=== PATIENT | female | born 1950 | race Caucasian/White ===

== ENCOUNTER 2022-04-29 20:39 | Inpatient (IN) | payer MEDICARE, BC ==
[~2022-04-29] VITALS: Ht 162.6 cm; Wt 75.7 kg
[2022-04-29 23:15] VITALS: BP 125/63
[2022-04-29 23:30] VITALS: BP 140/63
[2022-04-29 23:45] VITALS: BP 135/65
[2022-04-30] VITALS (59 sets, daily range): BP systolic 80–140; BP diastolic 48–81
[2022-04-30] MEDS ORDERED: NOREPINEPHRINE 4MG IN D5 250ML 4 MG in IV 1 EA IV SCH ×2
[2022-04-30] MEDS ORDERED: DEXTROSE 50% 50ML SYRINGE IV PRN (01:10)
[2022-04-30] MEDS ORDERED: GLUCOSE 4GM CHEW TABLET PO PRN (01:10)
[2022-04-30] MEDS ORDERED: GLUCAGON INJ 1MG VIAL SC PRN (01:10)
[2022-04-30 02:05] LABS: HEMATOCRIT 28.7 % (36.0-47.0); HEMOGLOBIN 9.1 g/dl (12.0-15.5); MEAN CORPUSCULAR HEMOGLOBIN 26.3 pg (27.0-33.0); MEAN CORPUSCULAR HGB CONC 31.7 g/dl (32.0-36.5); MEAN CORPUSCULAR VOLUME 82.9 fl (80.0-96.0); PLATELET COUNT, AUTOMATED 429 10^3/uL (150-450); RED BLOOD COUNT 3.46 10^6/uL (4.00-5.40); WHITE BLOOD COUNT 29.5 10^3/uL (4.0-10.0)
[2022-04-30] MEDS ORDERED: AMLO1TAB24 PO (02:06)
[2022-04-30] MEDS ORDERED: GLIM2TAB29 PO (02:06)
[2022-04-30] MEDS ORDERED: TRAD5TAB PO (02:06)
[2022-04-30] MEDS ORDERED: MEDR10TA9 PO (02:06)
[2022-04-30] MEDS ORDERED: DOXY100T PO (02:06)
[2022-04-30] MEDS: NS 1,000 ML IV SCH ×3 (02:06→22:21)
[2022-04-30] MEDS ORDERED: RAMI1CAP26 PO (02:10)
[2022-04-30] MEDS ORDERED: VITA500030 PO (02:10)
[2022-04-30] MEDS ORDERED: SIMV20TA22 PO (02:10)
[2022-04-30] MEDS ORDERED: METF-838 PO (02:10)
[2022-04-30] MEDS ORDERED: THERTAB52 PO (02:10)
[2022-04-30] MEDS ORDERED: GNP1000C11 PO (02:10)
[2022-04-30] MEDS ORDERED: ASPI81TA26 PO (02:10)
[2022-04-30] MEDS ORDERED: CALCCAP4 PO (02:10)
[2022-04-30] MEDS ORDERED: HOME MED LIST COMPLETE! XX SCH (02:15)
[2022-04-30 02:51] LABS: ALBUMIN 2.1 G/DL (3.2-5.2); ALKALINE PHOSPHATASE 101 U/L (46-116); ALT/SGPT 11 U/L (7.0-40); AST/SGOT 12 U/L (<34); BILIRUBIN,TOTAL < 0.2 MG/DL (0.3-1.2); BLOOD UREA NITROGEN 38 MG/DL (9-23); CARBON DIOXIDE LEVEL 18 MMOL/L (20-31); CHLORIDE LEVEL 103 MMOL/L (98-107); CREATININE FOR GFR 1.24 MG/DL (0.55-1.30); GLOMERULAR FILTRATION RATE 45.3 (>39); GLUCOSE, FASTING 159 MG/DL (74-106); MAGNESIUM LEVEL 1.6 MG/DL (1.8-2.4); PHOSPHORUS LEVEL 3.7 MG/DL (2.4-5.1); POTASSIUM SERUM 3.9 MMOL/L (3.5-5.1); SODIUM LEVEL 131 MMOL/L (136-145)
[2022-04-30 02:56] LABS: TOTAL PROTEIN 5.1 G/DL (5.7-8.2)
[2022-04-30 02:59] LABS: ANISOCYTOSIS 1+; HYPOCHROMASIA 1+; LYMPHOCYTES 9 % (16-44); METAMYELOCYTES 1 % (0-0); MONOCYTES 3 % (0-5); MYELOCYTES 1 % (0-0); NEUTROPHILS 78 % (28-66); PLATELET ESTIMATE NORMAL (NORMAL); PROMYELOCYTES 1 % (0-0)
[2022-04-30 03:00] LABS: BURR CELLS 2+
[2022-04-30] MEDS ORDERED: MAG SULF 1GM/100ML (MAG RUN) 1 GM in IV 1 EA IV ONE (03:25)
[2022-04-30] MEDS ORDERED: metroNIDAZOLE (FLAGYL) 500MG TABLET PO SCH (06:00)
[2022-04-30] MEDS ORDERED: VANCOMYCIN ORAL SOL 250MG/5ML ORAL SYRINGE PO SCH (06:00)
[2022-04-30] MEDS: INSULIN LISPRO (NovoLOG) PER UNIT SC SCH ×4 (07:30→20:14)
[2022-04-30] MEDS: ASPIRIN 81MG ENTERIC TABLET PO SCH (08:28)
[2022-04-30 08:54] LABS: CLOSTRIDIUM DIFFICILE PCR NEGATIVE (NEGATIVE)
[2022-04-30] MEDS ORDERED: LR 1,000 ML IV ONE (09:00)
[2022-04-30] MEDS: PIPERACILLIN/TAZOBACTAM SOD 4.5 GM in D5W MINI-BAG PLUS 50 ML IV SCH ×2 (11:07→17:39)
[2022-04-30] MEDS: medroxyPROGESTERone 5MG TABLET PO SCH (11:07)
[2022-04-30] MEDS: SIMVASTATIN 20 MG TAB PO SCH (20:13)
[2022-05-01] VITALS (11 sets, daily range): BP systolic 73–150; BP diastolic 40–70
[2022-05-01] MEDS: PIPERACILLIN/TAZOBACTAM SOD 4.5 GM in D5W MINI-BAG PLUS 50 ML IV SCH ×4 (00:03→17:14)
[2022-05-01] MEDS ORDERED: SODIUM CHLORIDE 0.9% INJ 10 ML SYR IV PRN (02:35)
[2022-05-01 05:19] LABS: HEMATOCRIT 28.7 % (36.0-47.0); HEMOGLOBIN 9.1 g/dl (12.0-15.5); MEAN CORPUSCULAR HEMOGLOBIN 26.5 pg (27.0-33.0); MEAN CORPUSCULAR HGB CONC 31.7 g/dl (32.0-36.5); MEAN CORPUSCULAR VOLUME 83.7 fl (80.0-96.0); PLATELET COUNT, AUTOMATED 445 10^3/uL (150-450); RED BLOOD COUNT 3.43 10^6/uL (4.00-5.40); WHITE BLOOD COUNT 20.2 10^3/uL (4.0-10.0)
[2022-05-01 05:37] LABS: ANISOCYTOSIS 1+; ATYPICAL LYMPH 5 % (0-5); LYMPHOCYTES 15 % (16-44); MONOCYTES 6 % (0-5); NEUTROPHILS 72 % (28-66); PLATELET ESTIMATE INCREASED (NORMAL); POIKILOCYTOSIS 1+; POLYCHROMASIA 1+
[2022-05-01 05:38] LABS: SCHISTOCYTES 1+
[2022-05-01 05:51] LABS: ALBUMIN 2.2 G/DL (3.2-5.2); ALKALINE PHOSPHATASE 86 U/L (46-116); ALT/SGPT 11 U/L (7.0-40); AST/SGOT 10 U/L (<34); BILIRUBIN,TOTAL 0.2 MG/DL (0.3-1.2); BLOOD UREA NITROGEN 12 MG/DL (9-23); CARBON DIOXIDE LEVEL 22 MMOL/L (20-31); CHLORIDE LEVEL 108 MMOL/L (98-107); CREATININE FOR GFR 0.56 MG/DL (0.55-1.30); GLOMERULAR FILTRATION RATE > 60.0 (>39); GLUCOSE, FASTING 97 MG/DL (74-106); MAGNESIUM LEVEL 1.6 MG/DL (1.8-2.4); POTASSIUM SERUM 3.3 MMOL/L (3.5-5.1); SODIUM LEVEL 139 MMOL/L (136-145); TOTAL PROTEIN 5.3 G/DL (5.7-8.2)
[2022-05-01] MEDS: INSULIN LISPRO (NovoLOG) PER UNIT SC SCH ×4 (07:30→20:57)
[2022-05-01] MEDS: ASPIRIN 81MG ENTERIC TABLET PO SCH (07:56)
[2022-05-01] MEDS ORDERED: MAG SULF 1GM/100ML (MAG RUN) 1 GM in IV 1 EA IV ONE (08:00)
[2022-05-01] MEDS ORDERED: POTASSIUM CHLORIDE 10MEQ SR TABLET PO ONE (09:00)
[2022-05-01] MEDS ORDERED: NEOSPORIN OINT 0.9 GM PKT TOP ONE (09:30)
[2022-05-01] MEDS: medroxyPROGESTERone 5MG TABLET PO SCH (12:43)
[2022-05-01] MEDS: LACTOBACILLUS ACIDOPHILUS CAP (BACID) PO SCH ×3 (12:43→21:00)
[2022-05-01] MEDS: NS 1,000 ML IV SCH (12:44)
[2022-05-01] MEDS: SIMVASTATIN 20 MG TAB PO SCH (21:00)
[2022-05-02] MEDS: NS 1,000 ML IV SCH
[2022-05-02] MEDS: PIPERACILLIN/TAZOBACTAM SOD 4.5 GM in D5W MINI-BAG PLUS 50 ML IV SCH ×4 (00:15→17:39)
[2022-05-02 04:33] VITALS: BP 150/71
[2022-05-02 04:52] LABS: HEMATOCRIT 30.3 % (36.0-47.0); HEMOGLOBIN 9.4 g/dl (12.0-15.5); MEAN CORPUSCULAR VOLUME 83.7 fl (80.0-96.0); PLATELET COUNT, AUTOMATED 452 10^3/uL (150-450); RED BLOOD COUNT 3.62 10^6/uL (4.00-5.40); WHITE BLOOD COUNT 17.7 10^3/uL (4.0-10.0)
[2022-05-02 05:14] LABS: BLOOD UREA NITROGEN 6 MG/DL (9-23); CALCIUM LEVEL 7.6 MG/DL (8.3-10.6); CARBON DIOXIDE LEVEL 24 MMOL/L (20-31); CHLORIDE LEVEL 110 MMOL/L (98-107); CREATININE FOR GFR 0.47 MG/DL (0.55-1.30); GLOMERULAR FILTRATION RATE > 60.0 (>39); GLUCOSE, FASTING 116 MG/DL (74-106); SODIUM LEVEL 140 MMOL/L (136-145)
[2022-05-02 05:21] LABS: ATYPICAL LYMPH 5 % (0-5); LYMPHOCYTES 19 % (16-44); MONOCYTES 8 % (0-5); NEUTROPHILS 63 % (28-66); OVALOCYTES 1+; PLATELET ESTIMATE INCREASED (NORMAL)
[2022-05-02 05:22] LABS: ANISOCYTOSIS 1+; TARGET CELLS 1+
[2022-05-02 08:00] VITALS: BP 158/75
[2022-05-02] MEDS: INSULIN LISPRO (NovoLOG) PER UNIT SC SCH ×4 (08:33→21:00)
[2022-05-02] MEDS: LACTOBACILLUS ACIDOPHILUS CAP (BACID) PO SCH ×4 (08:33→21:30)
[2022-05-02] MEDS: ASPIRIN 81MG ENTERIC TABLET PO SCH (08:33)
[2022-05-02] MEDS: medroxyPROGESTERone 5MG TABLET PO SCH (12:09)
[2022-05-02 14:00] VITALS: BP 144/75
[2022-05-02 16:00] VITALS: BP 140/71
[2022-05-02 21:29] VITALS: BP 144/73
[2022-05-02] MEDS: SIMVASTATIN 20 MG TAB PO SCH (21:30)
[2022-05-03] MEDS: PIPERACILLIN/TAZOBACTAM SOD 4.5 GM in D5W MINI-BAG PLUS 50 ML IV SCH ×4 (00:45→18:19)
[2022-05-03 05:22] VITALS: BP 143/88
[2022-05-03 06:59] LABS: HEMATOCRIT 31.3 % (36.0-47.0); HEMOGLOBIN 9.6 g/dl (12.0-15.5); MEAN CORPUSCULAR HEMOGLOBIN 25.4 pg (27.0-33.0); MEAN CORPUSCULAR HGB CONC 30.7 g/dl (32.0-36.5); MEAN CORPUSCULAR VOLUME 82.8 fl (80.0-96.0); PLATELET COUNT, AUTOMATED 452 10^3/uL (150-450); RED BLOOD COUNT 3.78 10^6/uL (4.00-5.40); WHITE BLOOD COUNT 15.3 10^3/uL (4.0-10.0)
[2022-05-03 07:20] LABS: ATYPICAL LYMPH 10 % (0-5); BASOPHILS 1 % (0-1); EOSINOPHILS 4 % (0-3); LYMPHOCYTES 18 % (16-44); MONOCYTES 12 % (0-5); MYELOCYTES 2 % (0-0); NEUTROPHILS 53 % (28-66); PLATELET ESTIMATE NORMAL (NORMAL)
[2022-05-03 07:21] LABS: ANISOCYTOSIS 1+; POIKILOCYTOSIS 1+; POLYCHROMASIA 1+
[2022-05-03 07:28] LABS: BLOOD UREA NITROGEN 11 MG/DL (9-23); CALCIUM LEVEL 8.1 MG/DL (8.3-10.6); CARBON DIOXIDE LEVEL 25 MMOL/L (20-31); CHLORIDE LEVEL 108 MMOL/L (98-107); GLOMERULAR FILTRATION RATE > 60.0 (>39); GLUCOSE, FASTING 135 MG/DL (74-106); POTASSIUM SERUM 3.8 MMOL/L (3.5-5.1); SODIUM LEVEL 139 MMOL/L (136-145)
[2022-05-03] MEDS: LACTOBACILLUS ACIDOPHILUS CAP (BACID) PO SCH ×4 (08:24→21:15)
[2022-05-03] MEDS: ASPIRIN 81MG ENTERIC TABLET PO SCH (08:24)
[2022-05-03] MEDS: INSULIN LISPRO (NovoLOG) PER UNIT SC SCH ×4 (08:25→21:00)
[2022-05-03 10:25] LABS: MAGNESIUM LEVEL 1.2 MG/DL (1.8-2.4)
[2022-05-03 10:40] LABS: ERYTHROCYTE SEDIMENTATION RATE 63 mm/hr (0-30)
[2022-05-03] MEDS: medroxyPROGESTERone 5MG TABLET PO SCH (12:17)
[2022-05-03 17:14] VITALS: BP 135/74
[2022-05-03 20:00] VITALS: BP 132/57
[2022-05-03] MEDS: SIMVASTATIN 20 MG TAB PO SCH (21:15)
[2022-05-04] MEDS: PIPERACILLIN/TAZOBACTAM SOD 4.5 GM in D5W MINI-BAG PLUS 50 ML IV SCH ×3 (01:20→12:14)
[2022-05-04 06:00] VITALS: BP 120/60
[2022-05-04 06:52] LABS: HEMATOCRIT 30.7 % (36.0-47.0); HEMOGLOBIN 9.7 g/dl (12.0-15.5); MEAN CORPUSCULAR HEMOGLOBIN 26.8 pg (27.0-33.0); MEAN CORPUSCULAR HGB CONC 31.6 g/dl (32.0-36.5); MEAN CORPUSCULAR VOLUME 84.8 fl (80.0-96.0); PLATELET COUNT, AUTOMATED 482 10^3/uL (150-450); RED BLOOD COUNT 3.62 10^6/uL (4.00-5.40); WHITE BLOOD COUNT 17.5 10^3/uL (4.0-10.0)
[2022-05-04 07:18] LABS: BLOOD UREA NITROGEN 14 MG/DL (9-23); CALCIUM LEVEL 8.5 MG/DL (8.3-10.6); CARBON DIOXIDE LEVEL 24 MMOL/L (20-31); CHLORIDE LEVEL 106 MMOL/L (98-107); CREATININE FOR GFR 0.38 MG/DL (0.55-1.30); GLOMERULAR FILTRATION RATE > 60.0 (>39); GLUCOSE, FASTING 149 MG/DL (74-106); POTASSIUM SERUM 3.7 MMOL/L (3.5-5.1); SODIUM LEVEL 138 MMOL/L (136-145)
[2022-05-04 07:47] LABS: MAGNESIUM LEVEL 1.3 MG/DL (1.8-2.4)
[2022-05-04] MEDS: LACTOBACILLUS ACIDOPHILUS CAP (BACID) PO SCH ×4 (08:02→21:13)
[2022-05-04] MEDS: ASPIRIN 81MG ENTERIC TABLET PO SCH (08:02)
[2022-05-04] MEDS: INSULIN LISPRO (NovoLOG) PER UNIT SC SCH ×4 (08:02→21:00)
[2022-05-04 08:35] LABS: ATYPICAL LYMPH 7 % (0-5); EOSINOPHILS 1 % (0-3); LYMPHOCYTES 22 % (16-44); METAMYELOCYTES 4 % (0-0); MONOCYTES 9 % (0-5); MYELOCYTES 2 % (0-0); NEUTROPHILS 53 % (28-66); NUCLEATED RED BLOOD CELL 1 % (0-0)
[2022-05-04 08:36] LABS: ANISOCYTOSIS 1+; HYPOCHROMASIA 1+
[2022-05-04 08:37] LABS: PLATELET ESTIMATE INCREASED (NORMAL); POIKILOCYTOSIS 1+
[2022-05-04] MEDS: MAG SULF 1GM/100ML (MAG RUN) 1 GM in IV 1 EA IV SCH ×2 (10:31→12:14)
[2022-05-04] MEDS: medroxyPROGESTERone 5MG TABLET PO SCH (12:15)
[2022-05-04] MEDS ORDERED: AMOX875T2 PO (12:23)
[2022-05-04] MEDS ORDERED: RISATAB3 PO (12:24)
[2022-05-04 14:00] VITALS: BP 117/60
[2022-05-04 20:26] VITALS: BP 122/57
[2022-05-04] MEDS: AUGMENTIN 875 MG TAB PO SCH (21:12)
[2022-05-04] MEDS: SIMVASTATIN 20 MG TAB PO SCH (21:13)
[2022-05-04] MEDS: NYSTATIN 100,000 UNITS/GM TOPICAL PWD 15GM TOP SCH (21:16)
[2022-05-05 06:50] VITALS: BP 136/74
[2022-05-05] MEDS: LACTOBACILLUS ACIDOPHILUS CAP (BACID) PO SCH ×4 (08:36→20:54)
[2022-05-05] MEDS: INSULIN LISPRO (NovoLOG) PER UNIT SC SCH ×4 (08:36→20:55)
[2022-05-05] MEDS: ASPIRIN 81MG ENTERIC TABLET PO SCH (08:36)
[2022-05-05] MEDS: AUGMENTIN 875 MG TAB PO SCH ×2 (08:36→20:54)
[2022-05-05] MEDS: NYSTATIN 100,000 UNITS/GM TOPICAL PWD 15GM TOP SCH ×2 (08:37→20:57)
[2022-05-05] MEDS: medroxyPROGESTERone 5MG TABLET PO SCH (13:32)
[2022-05-05 14:00] VITALS: BP 130/56
[2022-05-05] MEDS: SIMVASTATIN 20 MG TAB PO SCH (20:55)
[2022-05-05 21:09] VITALS: BP 154/72
[2022-05-06 05:25] VITALS: BP 133/64
[2022-05-06] MEDS: AUGMENTIN 875 MG TAB PO SCH (07:51)
[2022-05-06] MEDS: ASPIRIN 81MG ENTERIC TABLET PO SCH (07:51)
[2022-05-06] MEDS: LACTOBACILLUS ACIDOPHILUS CAP (BACID) PO SCH ×2 (07:51→12:52)
[2022-05-06] MEDS: INSULIN LISPRO (NovoLOG) PER UNIT SC SCH ×2 (07:53→12:53)
[2022-05-06] MEDS: NYSTATIN 100,000 UNITS/GM TOPICAL PWD 15GM TOP SCH (07:54)
[2022-05-06] MEDS: medroxyPROGESTERone 5MG TABLET PO SCH (12:51)
== END 2022-05-06 13:15 | disposition home health service (06) | DRG 871 ==
LOC: M ICU 23:10 → M MS5PR 05-02 18:15
PROVIDERS: ADMIT Internal Medicine; ATTEND Internal Medicine
DX: A41.89 Other specified sepsis (principal); R65.21 Severe sepsis with septic shock; L89.154 Pressure ulcer of sacral region, stage 4; A04.72 Enterocolitis due to Clostridium difficile, not specified as recurrent; G82.20 Paraplegia, unspecified; T81.31XA Disruption of external operation (surgical) wound, not elsewhere classified, initial encounter; N17.9 Acute kidney failure, unspecified; N39.0 Urinary tract infection, site not specified; M86.9 Osteomyelitis, unspecified; E83.42 Hypomagnesemia; E11.622 Type 2 diabetes mellitus with other skin ulcer; E87.6 Hypokalemia; I10 Essential (primary) hypertension; Z79.52 Long term (current) use of systemic steroids; Z79.82 Long term (current) use of aspirin; Z79.84 Long term (current) use of oral hypoglycemic drugs; Z79.899 Other long term (current) drug therapy

== ENCOUNTER → 2022-07-25 | Outpatient (CLI) | payer MEDICARE, BC ==
[~2022-07-25] MED LIST: AMLO1TAB24 PO; AMOX875T2 PO; ASPI81TA26 PO; CALCCAP4 PO; DOXY100T PO; GLIM2TAB29 PO; GNP1000C11 PO; MEDR10TA9 PO; METF-838 PO; RAMI1CAP26 PO; RISATAB3 PO; SIMV20TA22 PO; THERTAB52 PO; TRAD5TAB PO; VITA500030 PO
[2022-07-25 14:15] LABS: HEMOGLOBIN 8.1 g/dl (12.0-15.5); MEAN CORPUSCULAR HEMOGLOBIN 23.1 pg (27.0-33.0); MEAN CORPUSCULAR VOLUME 76.9 fl (80.0-96.0); PLATELET COUNT, AUTOMATED 884 10^3/uL (150-450); RED BLOOD COUNT 3.51 10^6/uL (4.00-5.40); WHITE BLOOD COUNT 13.1 10^3/uL (4.0-10.0)
[2022-07-25 14:34] LABS: ALKALINE PHOSPHATASE 92 U/L (46-116); ALT/SGPT 12 U/L (7.0-40); AST/SGOT 11 U/L (<34); BILIRUBIN,TOTAL 0.2 MG/DL (0.3-1.2); BLOOD UREA NITROGEN 8 MG/DL (9-23); CALCIUM LEVEL 8.9 MG/DL (8.3-10.6); CARBON DIOXIDE LEVEL 26 MMOL/L (20-31); CHLORIDE LEVEL 102 MMOL/L (98-107); CREATININE FOR GFR 0.44 MG/DL (0.55-1.30); GLOMERULAR FILTRATION RATE > 60.0 (>39); GLUCOSE, FASTING 81 MG/DL (74-106); POTASSIUM SERUM 5.2 MMOL/L (3.5-5.1); SODIUM LEVEL 135 MMOL/L (136-145); TOTAL PROTEIN 6.8 G/DL (5.7-8.2)
[2022-07-25 15:16] LABS: BASOPHILS 1 % (0-1); EOSINOPHILS 1 % (0-3); LYMPHOCYTES 45 % (16-44); NEUTROPHILS 53 % (28-66)
[2022-07-25 15:17] LABS: PLATELET ESTIMATE INCREASED (NORMAL)
[2022-07-25 15:18] LABS: HYPOCHROMASIA 2+
[2022-07-25 15:22] LABS: POIKILOCYTOSIS 1+
[2022-07-25 15:24] LABS: SCHISTOCYTES 1+
[2022-07-25 19:49] LABS: ERYTHROCYTE SEDIMENTATION RATE 123 mm/hr (0-30)
== END ==
LOC: M PLALAB 11:16
PROVIDERS: ATTEND Internal Medicine Infectious Disease
DX: M86.68 Other chronic osteomyelitis, other site (principal); Z20.822 Contact with and (suspected) exposure to COVID-19

== ENCOUNTER 2022-09-07 16:13 | Outpatient (CLI) | payer MEDICARE, BC ==
[~2022-09-07] VITALS: Ht 160 cm; Wt 77.3 kg
[~2022-09-07 16:13] MED LIST changes: +CURRENT HEIGHT AND WEIGHT NEEDED ON PATIENT XX SCH
[2022-09-07] MEDS ORDERED: BEZLOTOXUMAB 750 MG in NS 100 ML IV ONE ×2 (16:30→17:00)
[2022-09-07 16:35] VITALS: BP 133/69; O2SAT 98
[2022-09-07] MEDS ORDERED: SODIUM CHLORIDE 0.9% INJ 10 ML SYR IV PRN (17:05)
[2022-09-07] MEDS ORDERED: SODIUM CHLORIDE 0.9% INJ 10 ML SYR IV SCH (18:00)
[2022-09-07 18:03] VITALS: BP 138/65; O2SAT 99
== END 2022-09-07 18:00 ==
LOC: M INFU 16:13
PROVIDERS: ATTEND Internal Medicine Infectious Disease
DX: A04.71 Enterocolitis due to Clostridium difficile, recurrent (principal)
CPT/HCPCS: 96365; J0565

== ENCOUNTER 2023-01-03 16:35 | Outpatient (CLI) | payer MEDICARE, BC ==
[~2023-01-03] VITALS: Ht 160 cm; Wt 78.0 kg
[~2023-01-03 16:35] MED LIST changes: -CURRENT HEIGHT AND WEIGHT NEEDED ON PATIENT XX SCH
[2023-01-03 17:00] VITALS: BP 131/82; O2SAT 96
[2023-01-03] MEDS ORDERED: FECAL MICROBIOTA, LIVE-JSLM 150ML BAG (REBYOTA) RC ONE (17:00)
== END 2023-01-03 17:20 ==
LOC: M INFU 16:35
PROVIDERS: ATTEND Internal Medicine Infectious Disease
DX: A04.71 Enterocolitis due to Clostridium difficile, recurrent (principal)
CPT/HCPCS: G0455; J1440

== ENCOUNTER → 2023-03-23 | Outpatient (CLI) | payer MEDICARE ==
[2023-03-23 16:02] LABS: BASO # 0.1 10^3/uL (0.0-0.2); BASO % 0.6 % (0.0-1.0); EOS # 0.1 10^3/uL (0.0-0.5); HEMATOCRIT 26.6 % (36.0-47.0); HEMOGLOBIN 8.8 g/dl (12.0-15.5); LYMPH # 3.9 10^3/uL (1.5-5.0); LYMPH % 47.5 % (24.0-44.0); MEAN CORPUSCULAR HEMOGLOBIN 30.1 pg (27.0-33.0); MEAN CORPUSCULAR HGB CONC 33.1 g/dl (32.0-36.5); MEAN CORPUSCULAR VOLUME 91.1 fl (80.0-96.0); MONO # 0.7 10^3/uL (0.0-0.8); MONO % 8.3 % (2.0-8.0); NEUTROPHILS # 3.5 10^3/uL (1.5-8.5); NEUTROPHILS % 42.2 % (36.0-66.0); PLATELET COUNT, AUTOMATED 556 10^3/uL (150-450); RED BLOOD COUNT 2.92 10^6/uL (4.00-5.40); WHITE BLOOD COUNT 8.2 10^3/uL (4.0-10.0)
[2023-03-23 16:10] LABS: ERYTHROCYTE SEDIMENTATION RATE 19 mm/hr (0-30)
[2023-03-23 16:33] LABS: FREE T4 0.95 NG/DL (0.89-1.76); THYROID STIMULATING HORMONE 9.036 uIU/ML (0.55-4.78)
[2023-03-23 16:34] LABS: FOLATE > 24.00 NG/ML (>5.4)
[2023-03-23 16:36] LABS: ALBUMIN 0.9 G/DL (3.2-5.2); ALKALINE PHOSPHATASE 129 U/L (46-116); ALT/SGPT 21 U/L (7.0-40); AST/SGOT 20 U/L (<34); BILIRUBIN,TOTAL 0.2 MG/DL (0.3-1.2); BLOOD UREA NITROGEN 9 MG/DL (9-23); CALCIUM LEVEL 7.3 MG/DL (8.3-10.6); CARBON DIOXIDE LEVEL 27 MMOL/L (20-31); CHLORIDE LEVEL 104 MMOL/L (98-107); CREATININE FOR GFR 0.39 MG/DL (0.55-1.30); GLOMERULAR FILTRATION RATE > 60.0 (>39); GLUCOSE, FASTING 72 MG/DL (74-106); POTASSIUM SERUM 4.2 MMOL/L (3.5-5.1); SODIUM LEVEL 134 MMOL/L (136-145); TOTAL PROTEIN 4.7 G/DL (5.7-8.2)
== END ==
LOC: M PLALAB 14:07
PROVIDERS: ATTEND Internal Medicine Infectious Disease
DX: E53.8 Deficiency of other specified B group vitamins (principal); M86.68 Other chronic osteomyelitis, other site; K59.09 Other constipation

== ENCOUNTER 2023-05-15 09:40 | Day surgery (SDC) | payer MEDICARE ==
[~2023-05-15] VITALS: Ht 162.6 cm; Wt 67.2 kg
[~2023-05-15 09:40] MED LIST changes: +COLE1TAB PO; +FOLI1TAB11 PO; +SYNT50TA PO
[2023-05-15] MEDS ORDERED: MIRA3350 (10:23)
[2023-05-15] MEDS ORDERED: propofoL 200 MG/20 ML VIAL As Ordered ONE (11:34)
[2023-05-15] MEDS ORDERED: ONDANSETRON 4MG 2ML VIAL As Ordered ONE (11:34)
[2023-05-15] MEDS ORDERED: fentaNYL 100 MCG/2 ML INJECTION As Ordered ONE (11:34)
[2023-05-15] MEDS ORDERED: LIDOCAINE 2% 100MG/5ML SDV (FOR ANES.) As Ordered ONE (11:34)
[2023-05-15] MEDS ORDERED: ePHEDrine SULFATE 25 MG/5 ML(5MG/ML) SYRINGE As Ordered ONE (12:10)
[2023-05-15] MEDS ORDERED: PHENYLephrine 500MCG 5ML (100MCG/ML) SYRINGE As Ordered ONE (12:26)
[2023-05-15 17:27] VITALS: BP 104/57; TEMP 99; O2SAT 97
== END 2023-05-15 18:16 | disposition home or self-care (01) ==
LOC: M OPP 09:40
PROVIDERS: ATTEND Surgery
DX: Z12.11 Encounter for screening for malignant neoplasm of colon (principal); Q43.8 Other specified congenital malformations of intestine; D64.9 Anemia, unspecified

== ENCOUNTER 2023-05-15 18:12 | Inpatient (IN) | payer MEDICARE ==
[~2023-05-15] VITALS: Ht 157.5 cm; Wt 72.6 kg
[2023-05-15] MEDS: INSULIN LISPRO (NovoLOG) PER UNIT SC SCH (18:00)
[~2023-05-15 18:12] MED LIST changes: +GLUCAGON INJ 1MG VIAL SC PRN; +GLUCOSE 4GM CHEW TABLET PO PRN; +MIRA3350; +ONDANSETRON 4MG 2ML VIAL IV PRN; +ONDANSETRON 4MG TAB PO PRN
[2023-05-15 18:47] VITALS: BP 101/63; TEMP 98.8; O2SAT 98
[2023-05-15 19:00] VITALS: BP 101/59; TEMP 98.4; O2SAT 98
[2023-05-15] MEDS: NS 1,000 ML IV SCH (19:08)
[2023-05-15 19:35] LABS: BASO % 0.4 % (0.0-1.0); EOS # 0.1 10^3/uL (0.0-0.5); EOS % 0.8 % (0.0-3.0); HEMATOCRIT 22.2 % (36.0-47.0); HEMOGLOBIN 7.8 g/dl (12.0-15.5); LYMPH # 4.3 10^3/uL (1.5-5.0); LYMPH % 43.1 % (24.0-44.0); MEAN CORPUSCULAR HEMOGLOBIN 33.8 pg (27.0-33.0); MEAN CORPUSCULAR HGB CONC 35.1 g/dl (32.0-36.5); MEAN CORPUSCULAR VOLUME 96.1 fl (80.0-96.0); MONO # 0.8 10^3/uL (0.0-0.8); MONO % 8.1 % (2.0-8.0); NEUTROPHILS # 4.7 10^3/uL (1.5-8.5); NEUTROPHILS % 47.3 % (36.0-66.0); PLATELET COUNT, AUTOMATED 574 10^3/uL (150-450); RED BLOOD COUNT 2.31 10^6/uL (4.00-5.40); WHITE BLOOD COUNT 9.9 10^3/uL (4.0-10.0)
[2023-05-15 19:57] LABS: ALKALINE PHOSPHATASE 124 U/L (46-116); ALT/SGPT 19 U/L (7.0-40); AST/SGOT 27 U/L (<34); BILIRUBIN,TOTAL < 0.2 MG/DL (0.3-1.2); BLOOD UREA NITROGEN 10 MG/DL (9-23); CALCIUM LEVEL 7.4 MG/DL (8.3-10.6); CARBON DIOXIDE LEVEL 27 MMOL/L (20-31); CHLORIDE LEVEL 104 MMOL/L (98-107); CREATININE FOR GFR 0.44 MG/DL (0.55-1.30); GLOMERULAR FILTRATION RATE > 60.0 (>39); GLUCOSE, FASTING 69 MG/DL (74-106); POTASSIUM SERUM 3.8 MMOL/L (3.5-5.1); SODIUM LEVEL 134 MMOL/L (136-145); TOTAL PROTEIN 4.9 G/DL (5.7-8.2)
[2023-05-15 19:58] LABS: INR 1.19; PARTIAL THROMBOPLASTIN TIME 26.3 SECONDS (24.8-34.2); PROTHROMBIN TIME 14.7 SECONDS (12.5-14.5)
[2023-05-15 20:00] VITALS: BP 101/57; TEMP 97.3; O2SAT 98
[2023-05-15] MEDS: cefTRIAXone SOD 1 GM in D5W MINI-BAG PLUS 50 ML IV SCH (20:21)
[2023-05-15] MEDS: SIMVASTATIN 20 MG TAB PO SCH (20:21)
[2023-05-15 22:00] VITALS: BP 101/57; TEMP 97.3; O2SAT 98
[2023-05-16] VITALS (15 sets, daily range): BP systolic 93–124; BP diastolic 46–74; TEMP 97.2–98.1; O2SAT 98–100
[2023-05-16] MEDS ORDERED: GLUCOSE 4GM CHEW TABLET PO PRN (01:05)
[2023-05-16] MEDS ORDERED: GLUCAGON INJ 1MG VIAL SC PRN (01:05)
[2023-05-16] MEDS ORDERED: DEXTROSE 50% 50ML SYRINGE IV PRN (01:05)
[2023-05-16] MEDS: DEXTROSE 50% 50ML SYRINGE IV PRN (01:16)
[2023-05-16] MEDS: DEXTROSE 50% 50ML SYRINGE IV STA (01:18)
[2023-05-16 04:24] LABS: PROTEIN, URINE AUTO NEGATIVE (NEGATIVE)
[2023-05-16 04:41] LABS: CREATININE,RANDOM URINE 13.8 MG/DL
[2023-05-16] MEDS: LEVOTHYROXINE 50MCG TABLET (0.05MG) PO SCH (06:06)
[2023-05-16] MEDS ORDERED: SUGAMMADEX SODIUM 500 MG/5 ML VIAL (BRIDION) As Ordered ONE (06:51)
[2023-05-16] MEDS ORDERED: ROCURONIUM BROMIDE 50MG/5ML VIAL As Ordered ONE (06:51)
[2023-05-16] MEDS ORDERED: LIDOCAINE 2% 100MG/5ML SDV (FOR ANES.) As Ordered ONE (06:51)
[2023-05-16] MEDS ORDERED: propofoL 200 MG/20 ML VIAL As Ordered ONE (06:51)
[2023-05-16] MEDS ORDERED: KETOROLAC 60MG 2ML VIAL As Ordered ONE (06:52)
[2023-05-16] MEDS ORDERED: ONDANSETRON 4MG 2ML VIAL As Ordered ONE (06:52)
[2023-05-16] MEDS ORDERED: fentaNYL 100 MCG/2 ML INJECTION As Ordered ONE (06:58)
[2023-05-16] MEDS ORDERED: MIDAZOLAM INJ 2MG/2ML VIAL As Ordered ONE (06:58)
[2023-05-16] MEDS ORDERED: PHENYLephrine 500MCG 5ML (100MCG/ML) SYRINGE As Ordered ONE (07:53)
[2023-05-16] MEDS: metroNIDAZOLE 500 MG in IV 1 EA IV ONE (08:10)
[2023-05-16] MEDS: ceFAZolin SOD 2 GM in IV 1 EA IV ONE (08:10)
[2023-05-16] MEDS: FOLIC ACID 1MG TAB PO SCH (09:00)
[2023-05-16] MEDS: CALCIUM/VITAMIN D 500 MG TAB PO SCH (09:00)
[2023-05-16] MEDS: LR 1,000 ML IV SCH (09:40)
[2023-05-16] MEDS ORDERED: ONDANSETRON 4MG 2ML VIAL IV PRN (09:40)
[2023-05-16] MEDS: medroxyPROGESTERone 5MG TABLET PO SCH (11:33)
[2023-05-16] MEDS: PANTOPRAZOLE 40MG VIAL IV SCH (11:33)
[2023-05-16] MEDS ORDERED: MORPHINE 2 MG/ML 1ML VIAL IV PRN (14:40)
[2023-05-16] MEDS: D5W/0.45% SODIUM CHLORIDE 1,000 ML IV SCH (15:18)
[2023-05-16] MEDS: PERCOCET 5MG/325MG TAB PO ONE (15:18)
[2023-05-16] MEDS ORDERED: INSULIN LISPRO (NovoLOG) PER UNIT SC SCH ×2 (17:30→21:00)
[2023-05-16] MEDS: PERCOCET 5MG/325MG TAB PO PRN (19:50)
[2023-05-16 23:14] LABS: HEMATOCRIT 33.4 % (36.0-47.0)
[2023-05-16 23:17] LABS: HEMOGLOBIN 11.4 g/dl (12.0-15.5)
[2023-05-17] VITALS: BP 107/56; TEMP 97.9; O2SAT 96
[2023-05-17 04:00] VITALS: BP 109/57; TEMP 97.7; O2SAT 94; O2SAT 97
[2023-05-17 08:57] LABS: PROCALCITONIN 0.14 ng/ml
[2023-05-17 09:11] LABS: ALBUMIN 0.9 G/DL (3.2-5.2); ALKALINE PHOSPHATASE 114 U/L (46-116); ALT/SGPT 15 U/L (7.0-40); AST/SGOT 27 U/L (<34); BILIRUBIN,TOTAL 0.2 MG/DL (0.3-1.2); BLOOD UREA NITROGEN 6 MG/DL (9-23); CALCIUM LEVEL 6.3 MG/DL (8.3-10.6); CARBON DIOXIDE LEVEL 19 MMOL/L (20-31); CHLORIDE LEVEL 108 MMOL/L (98-107); GLOMERULAR FILTRATION RATE > 60.0 (>39); GLUCOSE, FASTING 116 MG/DL (74-106); POTASSIUM SERUM 3.8 MMOL/L (3.5-5.1); SODIUM LEVEL 136 MMOL/L (136-145); TOTAL PROTEIN 4.4 G/DL (5.7-8.2)
[2023-05-17 10:30] LABS: HEMATOCRIT 33.3 % (36.0-47.0); HEMOGLOBIN 11.2 g/dl (12.0-15.5); MEAN CORPUSCULAR HEMOGLOBIN 29.3 pg (27.0-33.0); MEAN CORPUSCULAR HGB CONC 33.6 g/dl (32.0-36.5); MEAN CORPUSCULAR VOLUME 87.2 fl (80.0-96.0); PLATELET COUNT, AUTOMATED 482 10^3/uL (150-450); RED BLOOD COUNT 3.82 10^6/uL (4.00-5.40); WHITE BLOOD COUNT 13.5 10^3/uL (4.0-10.0)
[2023-05-17 10:47] LABS: ERYTHROCYTE SEDIMENTATION RATE 8 mm/hr (0-30)
[2023-05-17 14:00] VITALS: BP 118/63; TEMP 97.5; O2SAT 99
[2023-05-17 18:00] VITALS: BP 116/61; TEMP 97.7; O2SAT 99
[2023-05-17 20:00] VITALS: BP 124/62; TEMP 98.1; O2SAT 98
[2023-05-18] VITALS: BP 125/66; TEMP 98.2; O2SAT 97
[2023-05-18 04:00] VITALS: BP 134/82; TEMP 97.9; O2SAT 92
[2023-05-18 06:00] VITALS: BP 132/76; TEMP 98.2; O2SAT 97
[2023-05-18 10:00] VITALS: BP 111/54; TEMP 97.9; O2SAT 100
[2023-05-18 14:00] VITALS: BP 126/70; TEMP 97; O2SAT 96
[2023-05-18 22:00] VITALS: BP 114/57; TEMP 97.9; O2SAT 98
[2023-05-19 02:00] VITALS: BP 103/58; TEMP 97.9; O2SAT 97
[2023-05-19 06:00] VITALS: BP 105/61; TEMP 98.6; O2SAT 97
[2023-05-19] MEDS ORDERED: PERCOCET PO (10:27)
== END 2023-05-19 14:09 | disposition home or self-care (01) | DRG 329 ==
LOC: M MSPAV 18:12
PROVIDERS: ADMIT Surgery; ATTEND General Practice
PROC: 0DJ08ZZ Inspection of Upper Intestinal Tract, Via Natural or Artificial Opening Endoscopic (ICD-10-PCS; principal; 2023-05-15)
PROC: 0DJD8ZZ Inspection of Lower Intestinal Tract, Via Natural or Artificial Opening Endoscopic (ICD-10-PCS; 2023-05-15)
PROC: 0D1N4Z4 Bypass Sigmoid Colon to Cutaneous, Percutaneous Endoscopic Approach (ICD-10-PCS; 2023-05-16)
DX: Z43.3 Encounter for attention to colostomy (principal); L89.224 Pressure ulcer of left hip, stage 4; G82.20 Paraplegia, unspecified; E46 Unspecified protein-calorie malnutrition; E87.1 Hypo-osmolality and hyponatremia; M86.68 Other chronic osteomyelitis, other site; K56.7 Ileus, unspecified; I10 Essential (primary) hypertension; E03.9 Hypothyroidism, unspecified; E78.5 Hyperlipidemia, unspecified; E88.09 Other disorders of plasma-protein metabolism, not elsewhere classified; E11.69 Type 2 diabetes mellitus with other specified complication; Z68.30 Body mass index [BMI] 30.0-30.9, adult; D64.9 Anemia, unspecified; N31.9 Neuromuscular dysfunction of bladder, unspecified; K59.09 Other constipation; M19.90 Unspecified osteoarthritis, unspecified site; Z90.81 Acquired absence of spleen; Z79.899 Other long term (current) drug therapy
CPT/HCPCS: 43235; G0121

== ENCOUNTER 2024-03-20 11:17 | Outpatient (CLI) | payer MEDICARE ==
[~2024-03-20] VITALS: Ht 160 cm; Wt 67.7 kg
[2024-03-20 13:00] VITALS: BP 117/55; O2SAT 97
[2024-03-20] MEDS: CEFEPIME HCL 2 GM in DEXTROSE 5% (D5W) ADV/MINI-BAG 50 ML IV ONE (13:08)
[2024-03-20 14:00] VITALS: BP 102/52; O2SAT 98
== END 2024-03-20 14:00 ==
LOC: M INFU 11:17
PROVIDERS: ATTEND Internal Medicine Infectious Disease
DX: A49.8 Other bacterial infections of unspecified site (principal)
CPT/HCPCS: 36569; 96365; C1751; J0692

== ENCOUNTER → 2024-03-20 | Outpatient (CLI) | payer MEDICARE ==
[~2024-03-20] MED LIST changes: -GLUCAGON INJ 1MG VIAL SC PRN; -GLUCOSE 4GM CHEW TABLET PO PRN; -ONDANSETRON 4MG 2ML VIAL IV PRN; -ONDANSETRON 4MG TAB PO PRN; +PERCOCET PO; +RAMI10CA64 PO; -RAMI1CAP26 PO
== END ==
LOC: M IRPRO 11:11
PROVIDERS: ATTEND Internal Medicine Infectious Disease
DX: M86.68 Other chronic osteomyelitis, other site (principal); A49.8 Other bacterial infections of unspecified site
CPT/HCPCS: 36569; C1751